=== PATIENT | male | born 1970 | race Hispanic/Latino ===

== ENCOUNTER 2022-07-29 07:20 | Day surgery (SDC) | payer BC ==
[2022-07-23 11:37] LABS: EOSINOPHILS % (AUTO) 2.3 % (0.0-8.0); HEMATOCRIT 42.6 % (42-54); MEAN CORPUSCULAR HEMOGLOBIN 30.3 pg (27.0-33.0); MEAN CORPUSCULAR HGB CONC 33.8 g/dL (32.0-36.0); MEAN CORPUSCULAR VOLUME 89.5 fL (79-99); MONOCYTES % (AUTO) 5.6 % (3.0-13.0); NEUTROPHILS % (AUTO) 66.7 % (40.0-77.0); PLATELET COUNT (AUTO) 387 K/uL (130-400); RED BLOOD CELL COUNT(AUTO) 4.76 MIL/uL (4.50-6.20); RED CELL DISTRIBUTION WIDTH 12.2 % (11.0-15.5)
[2022-07-23 11:54] LABS: APPEARANCE,URINE CLEAR (CLEAR); BILIRUBIN,URINE NEGATIVE (NEGATIVE); COLOR,URINE LIGHT-YELLOW (YELLOW); GLUCOSE, URINE (UA) NEGATIVE (NEGATIVE); KETONES,URINE 5 mg/dL (NEGATIVE); LEUKOCYTE ESTERASE ,URINE 500 Leu/uL (NEGATIVE); NITRATE,URINE 2+ (NEGATIVE); OCCULT BLOOD,URINE NEGATIVE (NEGATIVE); PROTEIN,URINE NEGATIVE (NEGATIVE); UROBILINOGEN,URINE 0.2 mg/dL (0.2-1.0)
[2022-07-23 11:55] LABS: PROTHROMBIN TIME 10.9 SEC (9.6-11.6)
[2022-07-23 11:57] LABS: PARTIAL THROMBOPLASTIN TIME 30.8 SEC (26.3-35.5)
[2022-07-23 12:04] LABS: BACTERIA,URINE RARE /HPF (None Seen); MUCUS,URINE RARE LPF (None Seen); SQUAMOUS EPITHELIAL CELL,UR RARE /HPF (0-2)
[2022-07-23 12:45] LABS: CREATININE 0.8 mg/dL (0.5-1.5)
[2022-07-28 09:21] VITALS: BP 127/78
[~2022-07-29] VITALS: Ht 172.7 cm; Wt 73.5 kg
[2022-07-29] VITALS (20 sets, daily range): BP systolic 104–156; BP diastolic 64–89
[~2022-07-29 07:20] MED LIST: ASCO100031 PO; CHOL200059 PO; LEVO-70 PO; TAMS-1 PO
[2022-07-29] MEDS ORDERED: LACTATED RINGERS 1000ML 1,000 ML IV ONE (07:53)
[2022-07-29] MEDS ORDERED: CEFTRIAXONE 1G VIAL ONE (07:57)
[2022-07-29] MEDS ORDERED: GENTAMICIN SULFATE IV SCH (08:30)
[2022-07-29] MEDS ORDERED: [UNRECOGNIZED DRUG - OTHER] IV SCH (08:30)
[2022-07-29] MEDS ORDERED: MIDAZOLAM HCL 1 MG/ML 2ML VIAL ONE (10:28)
[2022-07-29] MEDS ORDERED: SUCCINYLCHOLINE 200MG/10ML SYR ONE (10:28)
[2022-07-29] MEDS ORDERED: DEXAMETHASONE SOD PHOSPHATE 10MG/ML 1ML VIAL ONE (10:28)
[2022-07-29] MEDS ORDERED: LIDOCAINE PF 100MG/5ML (2%) SYRINGE 5ML ONE (10:28)
[2022-07-29] MEDS ORDERED: NEOSTIGMINE 5MG/5ML SYR IV ONE (10:29)
[2022-07-29] MEDS ORDERED: PROPOFOL 10 MG/ML 20ML VIAL IV ONE (10:29)
[2022-07-29] MEDS ORDERED: GLYCOPYRROLATE 1 MG/5 ML SYRINGE ONE (10:29)
[2022-07-29] MEDS ORDERED: FENTANYL CITRATE PF 50 MCG/1 ML 2ML VIAL ONE (10:29)
[2022-07-29] MEDS ORDERED: ROCURONIUM 10MG/1ML SYR 10 MG/ML ML ONE ×2 (10:29→10:59)
[2022-07-29] MEDS ORDERED: ONDANSETRON 4MG INJ ONE (10:29)
[2022-07-29] MEDS ORDERED: CEFTRIAXONE 1G VIAL IVP ONE (10:43)
[2022-07-29] MEDS ORDERED: MEPERIDINE-PF 25 MG/ML SYG ONE (12:46)
[2022-07-29] MEDS ORDERED: BACITRACIN 1 EACH PACKET TP ONE ×2 (13:21→14:46)
== END 2022-07-29 14:59 | disposition home or self-care (01) ==
LOC: DAH 07:20
PROVIDERS: ATTEND Urology
DX: N40.1 Benign prostatic hyperplasia with lower urinary tract symptoms (principal); R33.8 Other retention of urine; Z79.899 Other long term (current) drug therapy; Z98.890 Other specified postprocedural states; Z79.01 Long term (current) use of anticoagulants
CPT/HCPCS: 71045; 87426; 80048; 85025; 85610; 85730; 87077; 87088; 87186; 81001; 36415; 93005; 52648; J7030; C1758; A4354; J7120; J3010; J0330; J3490; J1100; J2710; J2001; J1580; J0696 ×2; J2250; J2704; J2405; J2175; A4358; A4930; A4215; A4223; A4222; A4221; A4663; A4600